=== PATIENT | female | born 1995 | race American Indian/Alaskan Native ===

== ENCOUNTER 2016-11-02 13:32 | Emergency (ER) | payer MEDICAID ==
[2016-11-02 13:36] VITALS: BMI 31.1
[2016-11-02 13:40] VITALS: BP 100/69; PULSE 94; RESP 19; TEMP 99; O2SAT 97
[2016-11-02] MEDS ORDERED: guaiFENesin 200 mg/10 ml Syrup UD PO STA (13:45)
--- NOTE | 2016-11-02 13:57 | ED PDOC ---
Arrival/HPI - General Chief Complaint: Back Pain Time Seen by Provider: 11/02/16 13:33 Historian: Patient - History of Present Illness Narrative History of Present Illness (Text): 11/02/16 13:46 20yo female present with complaint of nonproductive cough and nasal congestion x 3days. States she started having left sided upper back and lateral ribs pain with cough and deep inspiration 2days ago. she did not take any medicaiton. Denies fever, chills, sick contact, JOSEPH, diaphoresis, any other complaint. Past Medical History - Provider Review Nursing Documentation Reviewed: Yes - Infectious Disease Hx of Infectious Diseases: None - Tetanus Immunization Tetanus Immunization: Unknown - Past Medical History Past Medical History: No Previous - Cardiac Hx Cardiac Disorders: No - Pulmonary Hx Respiratory Disorders: No - Neurological Hx Neurological Disorder: No - HEENT Hx HEENT Disorder: No - Renal Hx Renal Disorder: No - Endocrine/Metabolic Hx Endocrine Disorders: No - Hematological/Oncological Hx Blood Disorders: Yes Hx Anemia: Yes - Integumentary Hx Dermatological Disorder: No - Musculoskeletal/Rheumatological Hx Musculoskeletal Disorders: No - Gastrointestinal Hx Gastrointestinal Disorders: Yes Other/Comment: gallstones - Genitourinary/Gynecological Hx Genitourinary Disorders: No - Psychiatric Hx Psychophysiologic Disorder: No Hx Substance Use: No - Past Surgical History Past Surgical History: No Previous - Surgical History Other/Comment: 1 vaginal - Anesthesia Hx Anesthesia: No - Suicidal Assessment Feels Threatened In Home Enviroment: No Family/Social History - Physician Review Nursing Documentation Reviewed: Yes Family/Social History: Unknown Family HX Smoking Status: Never Smoked Hx Alcohol Use: No Hx Substance Use: No Hx Substance Use Treatment: No Allergies/Home Meds Allergies/Adverse Reactions: Allergies No Known Allergies Allergy (Verified 11/02/16 13:35) Review of Systems - Physician Review All systems were reviewed & negative as marked: Yes - Review of Systems Constitutional: Normal Eyes: Normal ENT: Normal Respiratory: Cough Cardiovascular: Normal Gastrointestinal: Normal Genitourinary Female: Normal Musculoskeletal: Back Pain Skin: Normal Neurological: Normal Endocrine: Normal Hemo/Lymphatic: Normal Psychiatric: Normal Physical Exam Vital Signs Reviewed: Yes Vital Signs Temp Pulse Resp BP Pulse Ox 11/02/16 13:39 99.0 F 94 H 19 100/69 97 Temperature: Afebrile Blood Pressure: Normal Pulse: Regular Respiratory Rate: Normal Appearance: Positive for: Well-Appearing, Non-Toxic, Comfortable Pain Distress: None Mental Status: Positive for: Alert and Oriented X 3 - Systems Exam Head: Present: Atraumatic, Normocephalic Pupils: Present: PERRL Extroacular Muscles: Present: EOMI Conjunctiva: Present: Normal Mouth: Present: Moist Mucous Membranes Neck: Present: Normal Range of Motion Respiratory/Chest: Present: Clear to Auscultation, Good Air Exchange, Tender to Palpation (LEft lateral ribs). No: Respiratory Distress, Accessory Muscle Use, Wheezes, Decreased Breath Sounds, Rales, Retracting, Rhonchi Cardiovascular: Present: Regular Rate and Rhythm, Normal S1, S2. No: Murmurs Abdomen: Present: Normal Bowel Sounds. No: Tenderness, Distention, Peritoneal Signs Back: Present: Paraspinal Tenderness (LEft sided parathoracic tenderness). No: Midline Tenderness Upper Extremity: Present: Normal Inspection. No: Cyanosis, Edema Lower Extremity: Present: Normal Inspection. No: Edema Neurological: Present: GCS=15, CN II-XII Intact, Speech Normal Skin: Present: Warm, Dry, Normal Color. No: Rashes Psychiatric: Present: Alert, Oriented x 3, Normal Insight, Normal Concentration Medical Decision Making ED Course and Treatment: 11/02/16 14:36 Chest xray NAD PT was afebrile and hemodynamically stable. Chest was CTA on exam. She presneted with MS back and rib pain. Pain likley secondary to cough. She will be DC home with antitussive and NSAID - RAD Interpretation Radiology Orders: 11/02/16 13:43 RIBS LEFT & PA CHEST [RAD] Stat - Medication Orders Current Medication Orders: Discontinued Medications Guaifenesin (Robitussin) 200 mg PO ONCE STA Stop: 11/02/16 13:46 Last Admin: 11/02/16 13:54 Dose: 200 mg Ketorolac Tromethamine (Toradol) 60 mg IM STAT STA Stop: 11/02/16 13:46 Last Admin: 11/02/16 13:53 Dose: 60 mg Disposition/Present on Arrival - Present on Arrival Any Indicators Present on Arrival: No History of DVT/PE: No History of Uncontrolled Diabetes: No Urinary Catheter: No History of Decub. Ulcer: No History Surgical Site Infection Following: None - Disposition Have Diagnosis and Disposition been Completed?: Yes Diagnosis: Cough, Back pain, Rib pain Disposition: HOME/ ROUTINE Disposition Time: 14:40 Patient Plan: Discharge Condition: STABLE Discharge Instructions (ExitCare): Chest Pain (ED) Additional Instructions: Follow up with your Doctor REturn to ED for any new or worsening symptoms Prescriptions: Naproxen [Naprosyn] 500 mg PO BID #20 tablet Promethazine DM [Phenergan DM Syrup] 5 ml PO Q6 #118 cup
--- NOTE | 2016-11-03 09:32 | RAD ---
PROCEDURE: Radiographs of the Chest and Left Ribs. HISTORY: ribs pain COMPARISON: Low. TECHNIQUE: Frontal radiograph of the chest and multiple oblique radiographs of the left ribs were obtained. FINDINGS: LEFT RIBS: No fracture or focal lesion visualized. LUNGS: Clear. PLEURA: No pneumothorax or pleural fluid. CARDIOVASCULAR: Normal sized heart. No pulmonary vascular congestion. OTHER FINDINGS: None. IMPRESSION: Unremarkable radiographs of the chest and left ribs. No left rib fracture.
== END 2016-11-02 14:51 | disposition home or self-care (01) ==
LOC: ED 13:32
DX: R05 Cough (principal); M54.9 Dorsalgia, unspecified; R07.81 Pleurodynia
CPT/HCPCS: 71101; 96372; 99283; J1885

== ENCOUNTER 2017-01-19 01:54 | Emergency (ER) | payer MEDICAID ==
[2017-01-19 02:10] VITALS: BMI 29.2
[2017-01-19 02:12] VITALS: BP 131/81; PULSE 87; TEMP 98.1; O2SAT 98
[2017-01-19] MEDS ORDERED: TraMADol/Apap 37.5/325 mg Tab PO STA (02:21)
--- NOTE | 2017-01-19 02:24 | ED PDOC ---
Arrival/HPI - General Chief Complaint: Dental Pain Time Seen by Provider: 01/19/17 01:57 Historian: Patient - History of Present Illness Narrative History of Present Illness (Text): 01/19/17 02:21 Kita Chiu is a 21 year old female who presents to the ED complaining of left -sided dental pain for the past 3-4 days. Patient states she has been taking medication at home with minimal relief. Patient denies any fever, chills, sore throat, headache, dizziness, or any other complaints. Time/Duration: < week (3-4 days) Symptom Onset: Gradual Symptom Course: Unchanged Activities at Onset: Rest, Light Context: Home Past Medical History - Provider Review Nursing Documentation Reviewed: Yes - Infectious Disease Hx of Infectious Diseases: None - Tetanus Immunization Tetanus Immunization: Unknown - Past Medical History Past Medical History: No Previous - Cardiac Hx Cardiac Disorders: No - Pulmonary Hx Respiratory Disorders: No - Neurological Hx Neurological Disorder: No - HEENT Hx HEENT Disorder: No - Renal Hx Renal Disorder: No - Endocrine/Metabolic Hx Endocrine Disorders: No - Hematological/Oncological Hx Blood Disorders: Yes Hx Anemia: Yes - Integumentary Hx Dermatological Disorder: No - Musculoskeletal/Rheumatological Hx Musculoskeletal Disorders: No - Gastrointestinal Hx Gastrointestinal Disorders: Yes Other/Comment: gallstones - Genitourinary/Gynecological Hx Genitourinary Disorders: No - Psychiatric Hx Psychophysiologic Disorder: No Hx Substance Use: No - Past Surgical History Past Surgical History: No Previous - Surgical History Other/Comment: 1 vaginal - Anesthesia Hx Anesthesia: No - Suicidal Assessment Feels Threatened In Home Enviroment: No Family/Social History - Physician Review Nursing Documentation Reviewed: Yes Family/Social History: Unknown Family HX Smoking Status: Never Smoked Hx Alcohol Use: No Hx Substance Use: No Hx Substance Use Treatment: No Allergies/Home Meds Allergies/Adverse Reactions: Allergies No Known Allergies Allergy (Verified 01/19/17 02:10) Review of Systems - Physician Review All systems were reviewed & negative as marked: Yes - Review of Systems Constitutional: Normal. absent: Fevers Eyes: Normal ENT: Other (+left-sided dental pain). absent: Sore Throat Respiratory: Normal Cardiovascular: Normal Gastrointestinal: Normal Genitourinary Female: Normal Musculoskeletal: Normal. absent: Back Pain, Neck Pain Skin: Normal. absent: Rash Neurological: Normal. absent: Headache, Dizziness Endocrine: Normal Hemo/Lymphatic: Normal Psychiatric: Normal Physical Exam Vital Signs Reviewed: Yes Vital Signs Temp Pulse Resp BP Pulse Ox 01/19/17 02:11 98.1 F 87 16 131/81 98 Temperature: Afebrile Blood Pressure: Normal Pulse: Regular Respiratory Rate: Normal Appearance: Positive for: Well-Appearing, Non-Toxic, Comfortable Pain Distress: None Mental Status: Positive for: Alert and Oriented X 3 - Systems Exam Head: Present: Atraumatic, Normocephalic Pupils: Present: PERRL Extroacular Muscles: Present: EOMI Conjunctiva: Present: Normal Ears: Present: Normal, NORMAL TM, Normal Canal. No: Erythema, TM Bulging Mouth: Present: Moist Mucous Membranes, Normal Lips, Normal Tounge, Normal Teeth Pharnyx: Present: Normal. No: ERYTHEMA, EXUDATE, TONSILS ENLARGED, Peritonsilar Swelling, Uvular Deviation, Muffled/Hoarse Voice, Strider, Soft Palate/Uvular Edema Neck: Present: Normal Range of Motion Upper Extremity: Present: Normal Inspection. No: Cyanosis, Edema Lower Extremity: Present: Normal Inspection. No: Edema Neurological: Present: GCS=15, CN II-XII Intact, Speech Normal Skin: Present: Warm, Dry, Normal Color. No: Rashes Psychiatric: Present: Alert, Oriented x 3, Normal Insight, Normal Concentration Medical Decision Making ED Course and Treatment: 01/19/17 02:21 Impression: 21 year old female complaining of left-sided dental pain x 3-4 days. Plan: -- Amoxil -- Ultracet -- Reassess and disposition Progress Notes: 01/19/17 02:30 On reevaluation the patient feels better and is in no acute distress. I have discussed the results and plan with the patient, who expresses understanding. Patient given the opportunity to ask question, all questions were answered and there is agreement with the plan to discharge the patient home. Patient is stable for discharge. Patient was instructed to follow up with physician/dentist /clinic in 1-2 days or return if symptoms persist/worsen or new concerning symptoms arise. Re-evaluation Time: 02:30 Reassessment Condition: Re-examined, Improved - Medication Orders Current Medication Orders: Discontinued Medications Amoxicillin (Amoxil 500 Mg Cap) 500 mg PO STAT STA PRN Reason: Protocol Stop: 01/19/17 02:22 Tramadol/Acetaminophen (Ultracet 37.5/325 Mg) 1 tab PO ONCE STA Stop: 01/19/17 02:22 - Scribe Statement The provider has reviewed the documentation as recorded by the Madai Null Provider Scribe Attestation: All medical record entries made by the Scribe were at my direction and personally dictated by me. I have reviewed the chart and agree that the record accurately reflects my personal performance of the history, physical exam, medical decision making, and the department course for this patient. I have also personally directed, reviewed, and agree with the discharge instructions and disposition. Disposition/Present on Arrival - Present on Arrival Any Indicators Present on Arrival: No History of DVT/PE: No History of Uncontrolled Diabetes: No Urinary Catheter: No History of Decub. Ulcer: No History Surgical Site Infection Following: None - Disposition Have Diagnosis and Disposition been Completed?: Yes Diagnosis: Pain, dental Disposition: HOME/ ROUTINE Disposition Time: 02:31 Patient Problems: Current Active Problems Problem Status Onset Pain, dental Acute Condition: GOOD Discharge Instructions (ExitCare): Toothache (ED) Prescriptions: Amoxicillin 875 mg PO BID #14 tab Tramadol HCl [Ultram] 50 mg PO QID #6 tab Forms: [employer] ([place])
[2017-01-19 02:41] VITALS: RESP 18
== END 2017-01-19 02:41 | disposition home or self-care (01) ==
LOC: ED 01:54
DX: K08.89 Other specified disorders of teeth and supporting structures (principal)

== ENCOUNTER 2017-06-30 17:42 | Emergency (ER) | payer MEDICAID, OTHER ==
[2017-06-30 18:54] VITALS: BMI 29.9
[2017-06-30 18:58] VITALS: RESP 18; TEMP 99.5
[2017-06-30] MEDS ORDERED: Sodium Chloride 0.9% 1,000 ML IV ONE (19:45)
[2017-06-30 20:07] VITALS: BP 121/75; PULSE 112; O2SAT 98
[2017-06-30 20:07] LABS: BASO # 0.01 K/mm3 (0.0-2.0); BASO % 0.1 % (0.0-3.0); GRAN # 9.45 (1.4-6.5); GRAN % 80.5 % (50.0-68.0); HEMOGLOBIN 13.1 g/dL (12.0-16.0); LYMPH # 1.6 (1.2-3.4); MEAN CELL VOLUME 86.2 fl (80.0-105.0); MEAN CORPUSCULAR HEMOGLOBIN 28.7 pg (25.0-35.0); MEAN CORPUSCULAR HGB CONC 33.2 g/dl (31.0-37.0); MEAN PLATELET VOLUME 10.6 fl (7.0-11.0); MONO # 0.6 (0.1-0.6); MONO % 5.4 % (1.0-6.0); RBC 4.57 10^6/uL (3.5-6.1); RED CELL DISTRIBUTION WIDTH 13.6 % (11.5-14.5); WHITE BLOOD COUNT 11.7 10^3/ul (4.5-11.0)
[2017-06-30 20:16] LABS: ALBUMIN 4.7 g/dL (3.0-4.8); ALT/SGPT 36 U/L (7-56); AST/SGOT 31 U/L (14-36); BLOOD UREA NITROGEN 13 mg/dL (7-21); GFR AFRICAN-AMERICAN > 60; GFR NON-AFRICAN AMERICAN > 60
[2017-06-30 20:34] LABS: TROPONIN I < 0.01 ng/mL
--- NOTE | 2017-06-30 20:57 | CT ---
EXAM: CT Head Without Intravenous Contrast CLINICAL HISTORY: 21 years old, female; Signs and symptoms; Dizziness; Additional info: R/O ich TECHNIQUE: Axial computed tomography images of the head/brain without intravenous contrast. All CT scans at this facility use one or more dose reduction techniques, viz.: automated exposure control; ma/kV adjustment per patient size (including targeted exams where dose is matched to indication; i.e. head); or iterative reconstruction technique. Coronal and sagittal reformatted images were created and reviewed. COMPARISON: No relevant prior studies available. FINDINGS: Brain: No intracranial hemorrhage. No mass. No definite edema. Ventricles: No hydrocephalus. Bones/joints: No acute fracture. Soft tissues: Unremarkable. Sinuses: No acute sinusitis. Mastoid air cells: No mastoid effusion. Orbits: Unremarkable as visualized. Nasopharynx: Enlarged adenoids. IMPRESSION: 1. No definite acute intracranial abnormality. 2. Incidental/non-acute findings are described above.
[2017-06-30 21:01] LABS: URINE APPEARANCE SL CLOUDY (CLEAR); URINE BILIRUBIN NEGATIVE (NEGATIVE); URINE BLOOD NEGATIVE (NEGATIVE); URINE COLOR YELLOW (YELLOW); URINE GLUCOSE (UA) NEGATIVE (NEGATIVE); URINE LEUKOCYTE ESTERASE SMALL Leu/uL (NEGATIVE); URINE NITRATE NEGATIVE (NEGATIVE); URINE PROTEIN 30 mg/dL (<30 mg/dL); URINE UROBILINOGEN 0.2 E.U./dL (<1 E.U./dL)
[2017-06-30 21:18] LABS: URINE BACTERIA FEW (NEG); URINE RBC NEGATIVE /hpf (0-2)
--- NOTE | 2017-06-30 21:51 | ED PDOC ---
Arrival/HPI - General Chief Complaint: Headache Time Seen by Provider: 06/30/17 19:37 Historian: Patient - History of Present Illness Narrative History of Present Illness (Text): 06/30/17 19:36 A 21 year old female, whose past medical history includes anemia and gallstones , presents to the emergency department complaining of headache and mild dizziness for past few days. Patient reports headache is not worst of life. Patient denies any neck pain, fever, cough, chest pain, body aches, or any other complaints. PMD: Dr. Roopa Lindsay Time/Duration: < week (few days) Symptom Onset: Sudden Symptom Course: Unchanged Past Medical History - Provider Review Nursing Documentation Reviewed: Yes - Infectious Disease Hx of Infectious Diseases: None - Tetanus Immunization Tetanus Immunization: Unknown - Past Medical History Past Medical History: No Previous - Cardiac Hx Cardiac Disorders: No - Pulmonary Hx Respiratory Disorders: No - Neurological Hx Neurological Disorder: No - HEENT Hx HEENT Disorder: No - Renal Hx Renal Disorder: No - Endocrine/Metabolic Hx Endocrine Disorders: No - Hematological/Oncological Hx Blood Disorders: Yes Hx Anemia: Yes - Integumentary Hx Dermatological Disorder: No - Musculoskeletal/Rheumatological Hx Musculoskeletal Disorders: No - Gastrointestinal Hx Gastrointestinal Disorders: Yes Other/Comment: gallstones - Genitourinary/Gynecological Hx Genitourinary Disorders: No - Psychiatric Hx Psychophysiologic Disorder: No Hx Substance Use: No - Past Surgical History Past Surgical History: No Previous - Surgical History Other/Comment: 1 vaginal - Anesthesia Hx Anesthesia: No - Suicidal Assessment Feels Threatened In Home Enviroment: No Family/Social History - Physician Review Nursing Documentation Reviewed: Yes Family/Social History: No Known Family HX Smoking Status: Never Smoked Hx Alcohol Use: No Hx Substance Use: No Hx Substance Use Treatment: No Allergies/Home Meds Allergies/Adverse Reactions: Allergies No Known Allergies Allergy (Verified 01/19/17 02:10) Review of Systems - Physician Review All systems were reviewed & negative as marked: Yes - Review of Systems Constitutional: absent: Fevers Respiratory: absent: Cough Cardiovascular: absent: Chest Pain Musculoskeletal: absent: Neck Pain, Myalgias Neurological: Headache (not worst of life), Dizziness (mild) Physical Exam Vital Signs Reviewed: Yes Vital Signs Temp Pulse Resp BP Pulse Ox 06/30/17 20:06 112 H 18 121/75 98 06/30/17 18:56 99.5 F 121 H 18 113/73 97 Temperature: Afebrile Blood Pressure: Normal Pulse: Regular Respiratory Rate: Normal Appearance: Positive for: Well-Appearing Pain Distress: None Mental Status: Positive for: Alert and Oriented X 3 - Systems Exam Head: Present: Atraumatic, Normocephalic Pupils: Present: PERRL Extroacular Muscles: Present: EOMI Conjunctiva: Present: Normal Mouth: Present: Moist Mucous Membranes Neck: Present: Normal Range of Motion Respiratory/Chest: Present: Clear to Auscultation, Good Air Exchange. No: Respiratory Distress, Accessory Muscle Use Cardiovascular: Present: Regular Rate and Rhythm, Normal S1, S2. No: Murmurs Abdomen: Present: Normal Bowel Sounds. No: Tenderness, Distention, Peritoneal Signs Back: Present: Normal Inspection Upper Extremity: Present: Normal Inspection. No: Cyanosis, Edema Lower Extremity: Present: Normal Inspection. No: Edema Neurological: Present: GCS=15, CN II-XII Intact, Speech Normal Skin: Present: Warm, Dry, Normal Color. No: Rashes Psychiatric: Present: Alert, Oriented x 3, Normal Insight, Normal Concentration Medical Decision Making ED Course and Treatment: 06/30/17 19:38 Impression: 21 year old female with headache and mild dizziness. Physical exam is unremarkable. Plan: -- EKG -- Head CT -- Labs -- Urine Culture -- Urinalysis -- POC Urine Test -- Toradol -- Antivert -- IV Fluids -- Reassess and disposition Prior Visits: Notes and results from previous visits were reviewed. Patient was last seen in the emergency department on 01/19/2017 for left-sided dental pain. Patient was d /c home. Progress Notes: EKG: Ordered, reviewed, and independently interpreted the EKG. Rate : 112 BPM Rhythm : Sinus rhythm Interpretation : No ST-segment elevations or depressions, no T-wave inversions, normal intervals. Comparison : No previous EKG for comparison. 06/30/2017 20:[address] FINDINGS: Brain: No intracranial hemorrhage. No mass. No definite edema. Ventricles: No hydrocephalus. Bones/joints: No acute fracture. Soft tissues: Unremarkable. Sinuses: No acute sinusitis. Mastoid air cells: No mastoid effusion. Orbits: Unremarkable as visualized. Nasopharynx: Enlarged adenoids. IMPRESSION: 1. No definite acute intracranial abnormality. 2. Incidental/non-acute findings are described above. Dictator: Ken You MD - Lab Interpretations Lab Results: 06/30/17 19:56 06/30/17 19:56 Lab Results 06/30/17 20:14: Influenza Typ A,B (EIA) Negative for flu a/b 06/30/17 20:10: Urine Color Yellow, Urine Appearance Sl cloudy, Urine pH 6.0, Ur Specific [place] >= 1.030, Urine Protein 30 H, Urine Glucose (UA) Negative, Urine Ketones 40 H, Urine Blood Negative, Urine Nitrate Negative, Urine Bilirubin Negative, Urine Urobilinogen 0.2, Ur Leukocyte Esterase Small H, Urine RBC Negative, Urine WBC 2 - 5, Ur Epithelial Cells 10 - 12, Urine Bacteria Few 06/30/17 19:56: Sodium 139, Potassium 3.4 L, Chloride 101, Carbon Dioxide 26, Anion Gap 15, BUN 13, Creatinine 0.8, Est GFR ( Amer) > 60, Est GFR (Non- Af Amer) > 60, Random Glucose 99, Calcium 10.0, Magnesium 2.0, Total Bilirubin 0.4, AST 31, ALT 36, Alkaline Phosphatase 59, Lactate Dehydrogenase 521, Total Creatine Kinase 143, Troponin I < 0.01, Total Protein 9.3 H, Albumin 4.7, Globulin 4.6, Albumin/Globulin Ratio 1.0 L 06/30/17 19:56: WBC 11.7 H D, RBC 4.57, Hgb 13.1, Hct 39.4, MCV 86.2, MCH 28.7, MCHC 33.2, RDW 13.6, Plt Count 236, MPV 10.6, Gran % 80.5 H, Lymph % (Auto) 14.0 L, [place] % (Auto) 5.4, Eos % (Auto) 0.0 L, Baso % (Auto) 0.1, Gran # 9.45 H , Lymph # 1.6, [place] # 0.6, Eos # 0.0, Baso # 0.01 I have reviewed the lab results: Yes - RAD Interpretation Radiology Orders: 06/30/17 19:41 HEAD W/O CONTRAST [CT] Stat - Medication Orders Current Medication Orders: Discontinued Medications Sodium Chloride (Sodium Chloride 0.9%) 1,000 mls @ 250 mls/hr IV .Q4H ONE Stop: 06/30/17 23:44 Last Admin: 06/30/17 20:28 Dose: 250 mls/hr eMAR Start Stop Document 06/30/17 20:28 AD (Rec: 06/30/17 20:29 AD [id number]) Intravenous Solution Start Date 06/30/17 Start Time 20:29 Ketorolac Tromethamine (Toradol) 30 mg IVP STAT STA Stop: 06/30/17 20:00 Last Admin: 06/30/17 20:29 Dose: 30 mg MAR Pain Assessment Document 06/30/17 20:29 AD (Rec: 06/30/17 20:29 AD [id number]) Pain Reassessment Is this a pain reassessment? No Presence of Pain Presence of Pain Yes Pain Scale Used Pain Scale Used Numeric Location Pain Location Body Site Generalized Description Intensity of Pain at present 5 IVP Administration Document 06/30/17 20:29 AD (Rec: 06/30/17 20:29 AD [id number]) Charges for Administration # of IVP Administrations 1 Meclizine HCl (Antivert) 25 mg PO STAT STA Stop: 06/30/17 19:42 Last Admin: 06/30/17 20:28 Dose: 25 mg - Scribe Statement The provider has reviewed the documentation as recorded by the Madai Agarwal Provider Scribe Attestation: All medical record entries made by the Barreraibelroy were at my direction and personally dictated by me. I have reviewed the chart and agree that the record accurately reflects my personal performance of the history, physical exam, medical decision making, and the department course for this patient. I have also personally directed, reviewed, and agree with the discharge instructions and disposition. Disposition/Present on Arrival - Present on Arrival Any Indicators Present on Arrival: No History of DVT/PE: No History of Uncontrolled Diabetes: No Urinary Catheter: No History of Decub. Ulcer: No History Surgical Site Infection Following: None - Disposition Have Diagnosis and Disposition been Completed?: Yes Diagnosis: Dizziness, UTI (urinary tract infection) Disposition: HOME/ ROUTINE Disposition Time: 21:00 Condition: IMPROVED Discharge Instructions (ExitCare): Urinary Tract Infection in Women (ED), Dizziness (ED) Additional Instructions: Thank you for letting us take care of you today. The emergency medical care you received today was directed at your acute symptoms. If you were prescribed any medication, please fill it and take as directed. It may take several days for your symptoms to resolve. Return to the Emergency Department if your symptoms worsen, do not improve, or if you have any other problems. Please contact your doctor or call one of the physicians/clinics you have been referred to that are listed on the Patient Visit Information form that is included in your discharge packet. Bring any paperwork you were given at discharge with you along with any medications you are taking to your follow up visit. Our treatment cannot replace ongoing medical care by a primary care provider (PCP) outside of the emergency department. Thank you for allowing the [facility] team to be part of your care today. Follow up with your doctor in 2-3 days for re-evaluation and further management. Prescriptions: Meclizine [Meclizine*] 25 mg PO Q6 PRN #20 tab PRN Reason: Dizziness Nitrofurantoin Macrocrystals [Macrobid] 100 mg PO BID #10 cap Referrals: Roopa Lindsay MD [Primary Care Provider] - Follow up with primary Forms: 24h00 (Italian)
--- NOTE | 2017-07-01 10:48 | CARD ---
APPROVED REPORT EKG Measurement Heart [id number] MD P60 [id number] <Conclusion> Sinus tachycardia Nonspecific T wave abnormality Abnormal ECG
== END 2017-06-30 21:49 | disposition home or self-care (01) ==
LOC: ED 17:42
DX: R42 Dizziness and giddiness (principal); N39.0 Urinary tract infection, site not specified; D64.9 Anemia, unspecified
CPT/HCPCS: 70450; 80053; 81001; 82550; 83615; 83735; 84484; 85025; 87804; 93005; 96374; 99285; J1885; J7040

== ENCOUNTER 2017-11-04 17:05 | Emergency (ER) | payer MEDICAID, OTHER ==
[2017-11-04 17:10] VITALS: RESP 18; TEMP 97.7; O2SAT 100; BMI 29.2
--- NOTE | 2017-11-04 17:50 | ED PDOC ---
Arrival/HPI - General Chief Complaint: Female Genitourinary Time Seen by Provider: 11/04/17 17:31 Historian: Patient - History of Present Illness Narrative History of Present Illness (Text): 11/04/17 17:42 21 year old female, with past medical history of anemia and gallstones, presents to the Emergency Department complaining of vaginal spotting and intermittent lower pelvic cramps rated as 7/10 in severity since yesterday. Patient additionally informs less than one day onset of upper abdominal discomfort rated currently as 10/10 and states that she recently found out she is . Patient informs her last menstrual cycle was on 09/24/2017. Patient reports one episode of nausea and vomiting but denies any other complaints. Patient currently informs improved symptoms without any medications. Patient denies any fever,chills, chest pain, shortness of breath, palpitations, numbness/tingling, urinary/bowel changes/complaints, fall, trauma , sick contact, travel or any other complaints. Patient presents to the Emergency Department for medical evaluation. pt states recent treatment for UTI? pt is here for further eval PMD: Dr. Lindsay OB: Unsure but patient will most likey deliver at [facility] NO care currently P:1 PMHx: gallstones Time/Duration: 24 hours Symptom Onset: Gradual Symptom Course: Improving Quality: Cramping Severity Level: 8, 10 Activities at Onset: Light Context: Home Past Medical History - Provider Review Nursing Documentation Reviewed: Yes - Travel History Have you recently traveled outside [place] w/in the past 3 mons?: No - Past History Past History: No Previous - Infectious Disease Hx of Infectious Diseases: None - Tetanus Immunization Tetanus Immunization: Unknown - Reproductive Menopause: No Currently : Yes - Past Medical History Past Medical History: No Previous - Cardiac Hx Cardiac Disorders: No - Pulmonary Hx Respiratory Disorders: No - Neurological Hx Neurological Disorder: No - HEENT Hx HEENT Disorder: No - Renal Hx Renal Disorder: No - Endocrine/Metabolic Hx Endocrine Disorders: No - Hematological/Oncological Hx Blood Disorders: Yes Hx Anemia: Yes - Integumentary Hx Dermatological Disorder: No - Musculoskeletal/Rheumatological Hx Musculoskeletal Disorders: No - Gastrointestinal Hx Gastrointestinal Disorders: Yes Other/Comment: gallstones - Genitourinary/Gynecological Hx Genitourinary Disorders: No - Psychiatric Hx Psychophysiologic Disorder: No Hx Substance Use: No - Past Surgical History Past Surgical History: No Previous - Surgical History Other/Comment: 1 vaginal - Anesthesia Hx Anesthesia: No - Suicidal Assessment Feels Threatened In Home Enviroment: No Family/Social History - Physician Review Nursing Documentation Reviewed: Yes Family/Social History: No Known Family HX Smoking Status: Never Smoked Hx Alcohol Use: No Hx Substance Use: No Hx Substance Use Treatment: No Allergies/Home Meds Allergies/Adverse Reactions: Allergies No Known Allergies Allergy (Verified 01/19/17 02:10) Review of Systems - Physician Review All systems were reviewed & negative as marked: Yes - Review of Systems Constitutional: Normal. absent: Fevers Eyes: Normal ENT: Normal Respiratory: Normal. absent: SOB Cardiovascular: Normal. absent: Chest Pain Gastrointestinal: Abdominal Pain, Nausea, Vomiting. absent: Stool Changes, Diarrhea Genitourinary Female: Vaginal Bleeding (vaginal spotting), Other (suprapubic cramps). absent: Urine Output Changes Musculoskeletal: Normal Skin: Normal Neurological: Normal Endocrine: Normal Hemo/Lymphatic: Normal Psychiatric: Normal Physical Exam - Physical Exam Narrative Physical Exam (Text): 11/04/17 17:52 General: alert/awake, GCS = 15, oriented x 3, sitting on exam bed, NAD, uncomfortable, cooperative, follows command with ease Head: NC/AT EYE: PERRLA, EOMI, sclera anicteric, no nystagmus, no photophobia; visual field intact b/l Facial: WNL Oral: uvula/tongue are midline, no exudate/lesions, no drooling/stridor, no dysphonia; intact dentitions; moist oral mucosa NECK: intact ROM, no midline tenderness, no nuchal rigidity, no meningeal signs ; no step-off Chest: CTA b/l, no w/r/r; no tachypenia, no accessory muscle use noted Cardiac: +S1, +S2, no m/r/r Abdominal: +BS, soft/nd, mild diffuse mid/lower abd tenderness, well nourished patient; no masses/rebound/guarding/rigidity; no gill's sign, no mcburney's point tenderness : deferred Extremities: intact ROM, strength 5/5 grossly intact in all limbs, neurovasc intact b/l BACK: no step off, no midline tenderness, NO crepitus, no gross deformities noted; Intact ROM SKIN: cap refill < 1 sec, no ulcerations, no petechiae, no rashes/lesions NEURO: CNII-XII WNL, no facial asymmetries, no slurr speech, oriented x 3 NIH stroke scale ~ 0 Psych: normal insight, normal affect; follows command with ease Vital Signs Reviewed: Yes Vital Signs Temp Pulse Resp BP Pulse Ox 11/04/17 20:31 89 18 123/65 100 11/04/17 17:07 97.7 F 85 18 108/71 100 Temperature: Afebrile Blood Pressure: Normal Pulse: Regular Respiratory Rate: Normal Appearance: Positive for: Well-Appearing, Non-Toxic, Uncomfortable, Other (alert /awake, GCS = 15, oriented x 3, uncomfortable, NAD) Pain Distress: None Mental Status: Positive for: Alert and Oriented X 3 - Systems Exam Head: Present: Atraumatic, Normocephalic Medical Decision Making ED Course and Treatment: 11/04/17 17:54 Impression: 21 year old female presents to the Emergency Department for vaginal spotting, lower pelvic cramps and epigastric discomfort. I have considered all of the differential diagnostics regarding patient's chief medical complaints/ clinical findings, including but not limited to: r/o threaten ab; r/o infection; r/o acute choley Plan: -- Blood Type and Screen -- Tylenol -- Urinalysis, HCG -- Ultrasound of Abdomen -- Transvaginal Ultrasound -- Reassess and disposition Progress Notes: 11/04/172024 pt is comfortable pt is not in any distress pt is made aware of her medical results pt is encouraged fluids pt is encouraged no sex, no heavy lifting until her doctor approves pt will f/u as directed pt will be discharged home Re-evaluation Time: 20:30 Reassessment Condition: Improved - Lab Interpretations Lab Results: 11/04/17 18:00 Lab Results 11/04/17 18:00: Blood Type A POSITIVE, Antibody Screen Negative, BBK History Checked Patient has bt 11/04/17 18:00: Beta HCG, Quant 95021.00 H 11/04/17 18:00: Urine Color Yellow, Urine Appearance Clear, Urine pH 7.0, Ur Specific Anderson 1.020, Urine Protein Negative, Urine Glucose (UA) Negative, Urine Ketones Negative, Urine Blood Negative, Urine Nitrate Negative, Urine Bilirubin Negative, Urine Urobilinogen 1.0 H, Ur Leukocyte Esterase Trace H, Urine RBC Negative, Urine WBC 2 - 5, Ur Epithelial Cells 6 - 8, Amorphous Sediment Few, Urine Bacteria Many, Urine Other Uyeast 11/04/17 18:00: WBC 6.1 D, RBC 4.37, Hgb 12.1, Hct 36.3, MCV 83.1 D, MCH 27.7 , MCHC 33.3, RDW 14.7 H, Plt Count 237, MPV 10.6, Gran % 61.7, Lymph % (Auto) 23.3, [place] % (Auto) 5.5, Eos % (Auto) 9.0 H, Baso % (Auto) 0.5, Gran # 3.79, Lymph # (Auto) 1.4, [place] # (Auto) 0.3, Eos # (Auto) 0.6, Baso # (Auto) 0.03 I have reviewed the lab results: Yes Interpretation: Abnormal lab values (+ UTI) - RAD Interpretation Narrative RAD Interpretations (Text): 11/04/17 20:00 US , Transvaginal Dictated and Authenticated by: Kalina Ferguson MD 11/04/2017 7:43 PM Eastern Time ([place] & [place]) IMPRESSION: Single live intrauterine with fetus corresponding to gestational age of 5 weeks and 4 days. Obtained heart rate is 116 bpm. US Abdomen Complete Dictated and Authenticated by: Kalnia Ferguson MD 11/04/2017 7:44 PM Eastern Time ([place] & [place]) IMPRESSION: Cholelithiasis.The gallbladder is contracted with apparent wall thickening, probably exaggerated bladder distention. Radiology Orders: 11/04/17 17:42 OB TRANSVAGINAL [US] Stat 11/04/17 17:43 ABDOMEN COMPLETE [US] Stat Window Treatment Installer: Radiologist - Medication Orders Current Medication Orders: Discontinued Medications Acetaminophen (Tylenol 325mg Tab) 650 mg PO STAT STA Stop: 11/04/17 17:45 Last Admin: 11/04/17 17:56 Dose: 650 mg MAR Pain/Vitals Document 11/04/17 17:56 CONCEPCION (Rec: 11/04/17 17:57 CONCEPCION [id number]) Pain Reassessment Is This A Pain ReAssessment? Yes Presence of Pain Presence of Pain Yes Pain Scale Used Pain Scale Used Numeric Location Upper or Lower Lower Pain Location Body Site Abdomen Description Cramping Intensity 5 Nitrofurantoin Macrocrystals (Macrobid) 100 mg PO ONCE ONE PRN Reason: Protocol Stop: 11/04/17 20:30 Last Admin: 11/04/17 20:44 Dose: 100 mg - Scribe Statement The provider has reviewed the documentation as recorded by the Scribe Mario Melgoza. All medical record entries made by the Barreraibe were at my direction and personally dictated by me. I have reviewed the chart and agree that the record accurately reflects my personal performance of the history, physical exam, medical decision making, and the department course for this patient. I have also personally directed, reviewed, and agree with the discharge instructions and disposition. Disposition/Present on Arrival - Present on Arrival Any Indicators Present on Arrival: No History of DVT/PE: No History of Uncontrolled Diabetes: No Urinary Catheter: No History of Decub. Ulcer: No History Surgical Site Infection Following: None - Disposition Have Diagnosis and Disposition been Completed?: Yes Diagnosis: Vaginal bleeding in , Cholelithiases, UTI (urinary tract infection) Disposition: HOME/ ROUTINE Disposition Time: 20:45 Patient Plan: Discharge Patient Problems: Current Active Problems Problem Status Onset Cholelithiases Acute UTI (urinary tract infection) Acute Vaginal bleeding in Acute Condition: STABLE Discharge Instructions (ExitCare): Bleeding With (DC), Gallstones (DC ), Urinary Tract Infection, Adult (DC) Print Language: MONEGASQUE Additional Instructions: Make sure to see your doctor in 1-2 days DRINK PLENTY OF FLUIDS take your medications as prescribed NO sex until your doctor states you can NO heavy lifting RETURN TO ED IF worse pain, cant breath, persistent vomiting, high fever >101- 102 for hours, altered behavior, slurr speech, facial changes, focal weakness ( arm/leg or both), unable to urinate, heavy/persistent bleeding, passing out, chest pain, or other medical emergencies Prescriptions: Nitrofurantoin Macrocrystals [Macrobid] 100 mg PO BID #13 cap Multivit/Folic Acid/I [ Plus] 1 tab PO DAILY #30 tab Referrals: Kavon Tariq, [Primary Care Provider] - Follow up with primary [facility] [Outside] - Follow up with primary [facility] [place] - Follow up with primary [facility] [Outside] - [facility] with [facility] [Outside] - Follow up with primary Forms: Susanna Prado (Chinese)
[2017-11-04 18:35] LABS: BASO # 0.03 K/mm3 (0.0-2.0); BASO % 0.5 % (0.0-3.0); EOS # 0.6 (0.0-0.7); GRAN # 3.79 (1.4-6.5); GRAN % 61.7 % (50.0-68.0); HEMOGLOBIN 12.1 g/dL (12.0-16.0); LYMPH # 1.4 (1.2-3.4); LYMPH % 23.3 % (22.0-35.0); MEAN CELL VOLUME 83.1 fl (80.0-105.0); MEAN CORPUSCULAR HEMOGLOBIN 27.7 pg (25.0-35.0); MEAN CORPUSCULAR HGB CONC 33.3 g/dl (31.0-37.0); MEAN PLATELET VOLUME 10.6 fl (7.0-11.0); MONO # 0.3 (0.1-0.6); MONO % 5.5 % (1.0-6.0); RBC 4.37 10^6/uL (3.5-6.1); RED CELL DISTRIBUTION WIDTH 14.7 % (11.5-14.5); WHITE BLOOD COUNT 6.1 10^3/ul (4.5-11.0)
[2017-11-04 18:36] LABS: URINE BILIRUBIN NEGATIVE (NEGATIVE); URINE BLOOD NEGATIVE (NEGATIVE); URINE GLUCOSE (UA) NEGATIVE (NEGATIVE); URINE LEUKOCYTE ESTERASE TRACE Leu/uL (NEGATIVE); URINE PROTEIN NEGATIVE mg/dL (<30 mg/dL)
[2017-11-04 18:37] LABS: URINE APPEARANCE CLEAR (CLEAR); URINE COLOR YELLOW (YELLOW)
[2017-11-04 18:40] LABS: URINE AMORPHOUS SEDIMENT FEW; URINE BACTERIA MANY (NEG); URINE RBC NEGATIVE /hpf (0-2)
[2017-11-04 20:31] VITALS: BP 123/65; PULSE 89
--- NOTE | 2017-11-05 08:38 | US ---
PROCEDURE: First trimester ultrasound HISTORY: vag spotting, LMP 09/24, , pelvic cramp COMPARISON: None available. TECHNIQUE: Standard protocol for this study/examination. FINDINGS: LMP: 09/24/2017 Prior examinations from the current : None TECHNIQUE: Real-time 2D imaging, duplex and color Doppler. FINDINGS: Cardiac activity: Present Rate: 116 BPM Measurements: [place] rump length: 0.49 cm Gestational age based on CRL 6 weeks 1 day Gestational age 5 weeks 4 days based on gestational sac measurement 1.37 cm Gestational age derived from LMP: 5 weeks 6 days MARK based on LMP: 07/01/2018 MARK based on biometry: 07/01/2018 Gestational concordance documented. Yolk sac identified Uterus: Unremarkable. Cervix: No Cervical abnormalities: Negative examination for cervical dilatation or effacement. Closed cervix measuring 3.64 cm Subchorionic hemorrhage: None UTERUS: 4.3 x 5.8 x 8.4 cm. ADNEXA: Right: 1.8 x 3.5 cm. Normal Doppler arterial waveform documented. Left: 1.9 x 2.6 cm. Normal Doppler arterial waveform documented Fluid in the cul-de-sac: None IMPRESSION: 5 weeks 6 days live intrauterine gestation. Gestational concordance documented.
--- NOTE | 2017-11-05 08:41 | US ---
HISTORY: Mid abdominal pain. History of gallstones. COMPARISON: 11/26/2014 TECHNIQUE: Sonographic evaluation of the abdomen. FINDINGS: LIVER: Measures 12.8 cm. Normal echogenicity of the liver parenchyma. No mass. No intrahepatic bile duct dilatation. GALLBLADDER: Cholelithiasis. Negative study for gallbladder wall thickening, pericholecystic fluid, sonographic Blackwood's sign. COMMON BILE DUCT: Measures 30.0 mm. No stones. No dilatation. PANCREAS: Unremarkable as visualized. No mass. No ductal dilatation. RIGHT KIDNEY: Measures 3.3 x 10.9cm. Normal echogenicity. No calculus, mass, or hydronephrosis. LEFT KIDNEY: Measures 4.4 x 10.7cm. Normal echogenicity. No calculus, mass, or hydronephrosis. SPLEEN: Normal in size and contour. No mass. AORTA: No aneurysmal dilatation. IVC: Unremarkable. OTHER FINDINGS: None. IMPRESSION: Cholelithiasis. No sonographic evidence of acute cholecystitis. No significant interval change compared to the prior examination(s).
== END 2017-11-04 21:00 | disposition home or self-care (01) ==
LOC: ED 17:05
DX: O46.91 Antepartum hemorrhage, unspecified, first trimester (principal); O99.611 Diseases of the digestive system complicating pregnancy, first trimester; O23.41 Unspecified infection of urinary tract in pregnancy, first trimester; Z3A.01 Less than 8 weeks gestation of pregnancy

== ENCOUNTER 2018-03-10 23:01 | Emergency (ER) | payer MEDICAID ==
[2018-03-10 23:03] VITALS: BMI 29.2
[2018-03-10 23:10] VITALS: TEMP 98.3
--- NOTE | 2018-03-10 23:25 | ED PDOC ---
Arrival/HPI - General Historian: Patient - History of Present Illness Time/Duration: < week Symptom Onset: Gradual Symptom Course: Unchanged Activities at Onset: Light Context: Home - General Chief Complaint: Finger,Hand,&Wrist Time Seen by Provider: 03/10/18 23:10 - History of Present Illness Narrative History of Present Illness (Text): 03/10/18 23:22 Kita Chiu is a 22 year old female who presents to the ED complaining of right hand 3rd digit pain and swelling to the tip for the past 2 days. Patient states she realized to the tip around the edge of the nail of the right hand 3rd digit was swollen and painful. Patient denies any history of fall/trauma, issue flexing/extending right hand 3rd digit, fever, chills, vaginal bleeding, vaginal discharge, urinary complaints, or any other complaints. (Gordon Darden) Past Medical History - Provider Review Nursing Documentation Reviewed: Yes - Past History Past History: No Previous - Infectious Disease Hx of Infectious Diseases: None - Tetanus Immunization Tetanus Immunization: Unknown - Past Medical History Past Medical History: No Previous - Cardiac Hx Cardiac Disorders: No - Pulmonary Hx Respiratory Disorders: No - Neurological Hx Neurological Disorder: No - HEENT Hx HEENT Disorder: No - Renal Hx Renal Disorder: No - Endocrine/Metabolic Hx Endocrine Disorders: No - Hematological/Oncological Hx Blood Disorders: Yes Hx Anemia: Yes - Integumentary Hx Dermatological Disorder: No - Musculoskeletal/Rheumatological Hx Musculoskeletal Disorders: No - Gastrointestinal Hx Gastrointestinal Disorders: Yes Other/Comment: gallstones - Genitourinary/Gynecological Hx Genitourinary Disorders: No - Psychiatric Hx Psychophysiologic Disorder: No Hx Substance Use: No - Past Surgical History Past Surgical History: No Previous - Surgical History Other/Comment: 1 vaginal - Anesthesia Hx Anesthesia: No - Suicidal Assessment Feels Threatened In Home Enviroment: No Family/Social History - Physician Review Nursing Documentation Reviewed: Yes Family/Social History: Unknown Family HX Smoking Status: Never Smoked Hx Alcohol Use: No Hx Substance Use: No Hx Substance Use Treatment: No Allergies/Home Meds Allergies/Adverse Reactions: Allergies No Known Allergies Allergy (Verified 01/19/17 02:10) Review of Systems - Physician Review All systems were reviewed & negative as marked: Yes - Review of Systems Constitutional: absent: Fatigue, Fevers ENT: absent: Hearing Changes Respiratory: absent: SOB, Cough Cardiovascular: absent: Chest Pain Gastrointestinal: absent: Abdominal Pain, Nausea, Vomiting Skin: Rash, Skin Lesions. absent: Pruritis Neurological: absent: Headache, Dizziness Psychiatric: absent: Anxiety, Depression, Suicidal Ideation Physical Exam Vital Signs Reviewed: Yes Temperature: Afebrile Blood Pressure: Normal Pulse: Regular Respiratory Rate: Normal Appearance: Positive for: Well-Appearing, Non-Toxic, Comfortable Pain Distress: Mild Mental Status: Positive for: Alert and Oriented X 3 - Systems Exam Head: Present: Atraumatic, Normocephalic Pupils: Present: PERRL Extroacular Muscles: Present: EOMI Conjunctiva: Present: Normal Mouth: Present: Moist Mucous Membranes Neck: Present: Normal Range of Motion Respiratory/Chest: Present: Clear to Auscultation, Good Air Exchange. No: Respiratory Distress, Accessory Muscle Use Cardiovascular: Present: Regular Rate and Rhythm, Normal S1, S2. No: Murmurs Abdomen: No: Tenderness, Distention, Peritoneal Signs Back: Present: Normal Inspection Upper Extremity: Present: Normal Inspection, Other (Rt. hand 3rd digit: visible early paronychia noted with no streaking or ulcers, FROM without limitation, sensation intact, motor 5/5, +radial pulse, capillary refill< 2 seconds, neurovascular intact. ). No: Cyanosis, Edema Lower Extremity: Present: Normal Inspection. No: Edema Neurological: Present: GCS=15, CN II-XII Intact, Speech Normal Skin: Present: Warm, Dry, Normal Color. No: Rashes Psychiatric: Present: Alert, Oriented x 3, Normal Insight, Normal Concentration Vital Signs Temp Pulse Resp BP Pulse Ox 03/11/18 00:00 75 16 110/79 100 03/10/18 23:07 98.3 F 73 18 108/76 99 Medical Decision Making ED Course and Treatment: 03/10/18 23:25 Impression: 22 year old female c/o pain/swelling to tip right hand 3rd digit along the nail edge Differential Diagnosis included but are not limited to: paronychia Plan: -- Paronychia incision and drainage -- Reassess and disposition Progress Notes: PROCEDURE: PARONYCHIA I & D Performed by the emergency provider Indication: Paronychia Location: rt. hand 3rd digit Preparation: Local infiltration of {anesthetic} 3cc was used for anesthesia as digital block rt. hand 3rd digit. Procedure: The most fluctuant portion was incised with a #11 scalpel. A wedge of nail {WAS NOT} removed. Approximately 0.5 mL of purulant discharge was obtained. A dressing was applied. Post-Procedure: On exam the paronychia is notably less fluctuant. The patient tolerated the procedure well, and there were no complications. Cultured: {NO} 03/10/18 23:45 -Urine hcg is negative -Discharge home with keflex, motrin, follow up with your own pmd and hand specialist within 2 days, return to the ER for any new or worsening signs or symptoms. (Gordon Darden) 03/10/18 23:25 Impression: 22 year old female c/o pain/swelling to tip right hand 3rd digit along the nail edge Differential Diagnosis included but are not limited to: paronychia Plan: -- Paronychia incision and drainage -- Reassess and disposition Progress Notes: PROCEDURE: PARONYCHIA I & D Performed by the emergency provider Indication: Paronychia Location: rt. hand 3rd digit Preparation: Local infiltration of {anesthetic} 3cc was used for anesthesia as digital block rt. hand 3rd digit. Procedure: The most fluctuant portion was incised with a #11 scalpel. A wedge of nail {WAS NOT} removed. Approximately 0.5 mL of purulant discharge was obtained. A dressing was applied. Post-Procedure: On exam the paronychia is notably less fluctuant. The patient tolerated the procedure well, and there were no complications. Cultured: {NO} 03/10/18 23:45 -Urine hcg is negative -Discharge home with keflex, motrin, follow up with your own pmd and hand specialist within 2 days, return to the ER for any new or worsening signs or symptoms. (Scott Carlin) - Medication Orders Current Medication Orders: Discontinued Medications Cephalexin Monohydrate (Keflex) 500 mg PO STAT STA; Protocol Stop: 03/10/18 23:22 Last Admin: 03/10/18 23:45 Dose: 500 mg - PA / BRANCH ACCOUNT MANAGER / Resident Statement MD/DO has reviewed & agrees with the documentation as recorded. - Scribe Statement The provider has reviewed the documentation as recorded by the Scribe - Scribe Statement Aruna Null All medical record entries made by the Scribe were at my direction and personally dictated by me. I have reviewed the chart and agree that the record accurately reflects my personal performance of the history, physical exam, medical decision making, and the department course for this patient. I have also personally directed, reviewed, and agree with the discharge instructions and disposition. (Gordon Darden) Aruna Null All medical record entries made by the Scribe were at my direction and personally dictated by me. I have reviewed the chart and agree that the record accurately reflects my personal performance of the history, physical exam, medical decision making, and the department course for this patient. I have also personally directed, reviewed, and agree with the discharge instructions and disposition. (Scott Carlin) Disposition/Present on Arrival - Present on Arrival Any Indicators Present on Arrival: No History of DVT/PE: No History of Uncontrolled Diabetes: No Urinary Catheter: No History of Decub. Ulcer: No History Surgical Site Infection Following: None - Disposition Have Diagnosis and Disposition been Completed?: Yes Disposition Time: 23:47 Patient Plan: Discharge - Disposition Diagnosis: Paronychia Disposition: HOME/ ROUTINE Condition: GOOD Additional Instructions: -Discharge home with keflex, motrin, follow up with your own pmd and hand specialist within 2 days, return to the ER for any new or worsening signs or symptoms. Prescriptions: Cephalexin [Keflex] 500 mg PO QID #28 capsule RX: Ibuprofen [Motrin Tab] 600 mg PO QID PRN #30 tab PRN Reason: Other Referrals: Roopa Lindsay MD [Primary Care Provider] - Follow up with primary Reggie Chavez III, MD [Medical Doctor] - Follow up with primary Forms: [employer] (Vietnamese), WORK NOTE
[2018-03-11 00:40] VITALS: BP 110/79; PULSE 75; RESP 16; O2SAT 100
== END 2018-03-11 | disposition home or self-care (01) ==
LOC: ED 23:01
DX: L03.011 Cellulitis of right finger (principal)

== ENCOUNTER 2018-03-25 16:42 | Emergency (ER) | payer MEDICAID ==
[2018-03-25 16:42] VITALS: BMI 29.2
[2018-03-25 16:53] VITALS: RESP 18; O2SAT 98
--- NOTE | 2018-03-25 17:54 | ED PDOC ---
Arrival/HPI - General Chief Complaint: Finger,Hand,&Wrist Time Seen by Provider: 03/25/18 17:53 Historian: Patient - History of Present Illness Narrative History of Present Illness (Text): 03/25/18 17:54 22 year old female who presents to the Emergency department complaining of right middle finger swelling. Patient reports that her middle finger was previously swollen and underwent incision and drainage for an abcess. Since the procedure the swelling has worsened and patient notes finger pain secondary to the swelling. She was given antibiotics post procedure and was compliant with the regimen. Of note she denies any packing was used after the incision and drainage was performed. Patient admits to having a history of oral herpes and denies the appearance of any vesicles on the right middle finger prior to her symptoms. She also denies any recent trauma to the finger prior to her finger swelling. Patient denies fevers, chills, cough, or any other complaint. Patient is Left Hand dominant. Time/Duration: > week Symptom Onset: Gradual Symptom Course: Worsening Context: Home Past Medical History - Provider Review Nursing Documentation Reviewed: Yes - Past History Past History: No Previous - Infectious Disease Hx of Infectious Diseases: None - Tetanus Immunization Tetanus Immunization: Unknown - Past Medical History Past Medical History: No Previous - Cardiac Hx Cardiac Disorders: No - Pulmonary Hx Respiratory Disorders: No - Neurological Hx Neurological Disorder: No - HEENT Hx HEENT Disorder: No - Renal Hx Renal Disorder: No - Endocrine/Metabolic Hx Endocrine Disorders: No - Hematological/Oncological Hx Blood Disorders: Yes Hx Anemia: Yes - Integumentary Hx Dermatological Disorder: No - Musculoskeletal/Rheumatological Hx Musculoskeletal Disorders: No - Gastrointestinal Hx Gastrointestinal Disorders: Yes Hx Gall Bladder Disease: Yes Other/Comment: gallstones - Genitourinary/Gynecological Hx Genitourinary Disorders: No Other/Comment: ovarian cyst - Psychiatric Hx Psychophysiologic Disorder: No Hx Substance Use: No - Past Surgical History Past Surgical History: No Previous - Surgical History Other/Comment: 1 vaginal - Anesthesia Hx Anesthesia: No - Suicidal Assessment Feels Threatened In Home Enviroment: No Family/Social History - Physician Review Nursing Documentation Reviewed: Yes Family/Social History: No Known Family HX Smoking Status: Never Smoked Hx Alcohol Use: No Hx Substance Use: No Hx Substance Use Treatment: No Allergies/Home Meds Allergies/Adverse Reactions: Allergies No Known Allergies Allergy (Verified 01/19/17 02:10) Review of Systems - Physician Review All systems were reviewed & negative as marked: Yes - Review of Systems Constitutional: absent: Fevers, Night Sweats Respiratory: absent: Cough Skin: Other (finger swelling) Physical Exam Vital Signs Reviewed: Yes Vital Signs Temp Pulse Resp BP Pulse Ox 03/25/18 16:51 98.3 F 96 H 18 114/80 98 Temperature: Afebrile Blood Pressure: Normal Pulse: Regular Respiratory Rate: Normal Appearance: Positive for: Well-Appearing Mental Status: Positive for: Alert and Oriented X 3 - Systems Exam Head: Present: Atraumatic, Normocephalic Pupils: Present: PERRL Extroacular Muscles: Present: EOMI Conjunctiva: Present: Normal Mouth: Present: Moist Mucous Membranes Neck: Present: Normal Range of Motion Respiratory/Chest: Present: Clear to Auscultation, Good Air Exchange. No: Respiratory Distress, Accessory Muscle Use Cardiovascular: Present: Regular Rate and Rhythm, Normal S1, S2. No: Murmurs Abdomen: No: Tenderness, Distention, Peritoneal Signs Back: Present: Normal Inspection Upper Extremity: Present: Normal Inspection, Normal ROM (Able to flex and extend finger passively. Pain with extension.), NORMAL PULSES, Swelling (fusiform swelling of distal tip of right 3rd metacarpal), Capillary Refill < 2s. No: Cyanosis Lower Extremity: Present: Normal Inspection. No: Edema Neurological: Present: GCS=15, CN II-XII Intact, Speech Normal Skin: Present: Warm, Dry, Normal Color. No: Rashes Psychiatric: Present: Alert, Oriented x 3, Normal Insight, Normal Concentration Medical Decision Making ED Course and Treatment: 03/25/18 17:54 Impression: 22 year old female complaining of worsening swelling of the right middle finger. Differential Diagnosis included but are not limited to: Herpetic ben Flexor tenosynovitis Felon Plan: -- Reassess and disposition Prior Visits: Notes and results from previous visits were reviewed. Patient was last seen in the emergency department on 03/10/18 for right middle finger swelling and pain. She underwent paronychia I&D and was discharged home. Progress Notes: 03/25/18 18:05 Spoke to surgical materials management clerk as assembler surgical garment is currently in OR. Ophthalmic Asst will relay message about patient. 03/25/18 19:[address] Hallman(surgery) who states patient may follow up in hand clinic. Spoke to patient about consulting hand surgery and she does not want to stay for hand surgery evaluation and would like to go home and follow up in clinic. Will treat patient with antiviral and antibiotics medication and follow up with hand surgery. - Scribe Statement The provider has reviewed the documentation as recorded by the Scribe Kong Kimberlydominga Provider Scribe Attestation: All medical record entries made by the Scribe were at my direction and personally dictated by me. I have reviewed the chart and agree that the record accurately reflects my personal performance of the history, physical exam, medical decision making, and the department course for this patient. I have also personally directed, reviewed, and agree with the discharge instructions and disposition. Disposition/Present on Arrival - Present on Arrival Any Indicators Present on Arrival: No History of DVT/PE: No History of Uncontrolled Diabetes: No Urinary Catheter: No History of Decub. Ulcer: No History Surgical Site Infection Following: None - Disposition Have Diagnosis and Disposition been Completed?: Yes Diagnosis: Herpetic ben, Shiraon of finger Disposition: HOME/ ROUTINE Disposition Time: 19:40 Patient Plan: Discharge Patient Problems: Current Active Problems Problem Status Onset Herpetic ben Acute Felon of finger Acute Condition: STABLE Discharge Instructions (ExitCare): Cellulitis (Skin Infection), Adult (DC), Cold Sores (Oral Herpes) (DC) Prescriptions: Acyclovir 400 mg PO TID 10 Days #30 tablet Clindamycin [Cleocin] 300 mg PO TID 10 Days #30 cap Ibuprofen [Motrin Tab] 600 mg PO Q6H PRN 6 Days #24 tab PRN Reason: Pain, Moderate (4-7) Referrals: Roopa Lindsay MD [Primary Care Provider] - Follow up with primary Nuvia Zavaleta MD [Staff Provider] - Follow up with primary Rajendra Meza MD [Staff Provider] - Follow up with primary Forms: [facility] ([place]er), WORK NOTE
[2018-03-25 22:13] VITALS: BP 118/78; PULSE 88; TEMP 98.2
== END 2018-03-25 20:10 | disposition home or self-care (01) ==
LOC: ED 16:42
DX: B00.89 Other herpesviral infection (principal)
CPT/HCPCS: 96372; 99283; J1885; J8499